=== PATIENT | female | born 1995 | race Caucasian/White ===

== ENCOUNTER 2018-07-26 17:06 | Emergency (ER) | payer OTHER ==
[~2018-07-26] VITALS: Ht 157.5 cm; Wt 90.7 kg
[2018-07-26 17:30] VITALS: BP 120/75
[2018-07-26] MEDS ORDERED: HYDR-3164 PO (18:07)
[2018-07-26] MEDS ORDERED: PENI500T PO (18:07)
--- NOTE | 2018-07-26 18:07 | PHYS DOC ---
Adult General Chief Complaint Chief Complaint: DENTAL PROBLEM HPI HPI Patient is a 23 year old female with a history of anxiety who presents today complaining of 8 out of 10 right lower gum dental pain that began yesterday. Patient states she has a wisdom tooth that needs to be removed. She states she has a dentist appointment on Friday. Patient states she feels very stressed out. She is anxious, denies any suicidal or homicidal ideations. She states she is to be an anxiety medications but has not taken them for a long time. Review of Systems Review of Systems Constitutional: Denies fever or chills [] Eyes: Denies change in visual acuity, redness, or eye pain [] HENT:Reports dental pain. Denies nasal congestion or sore throat [] Respiratory: Denies cough or shortness of breath [] Cardiovascular: No additional information not addressed in HPI [] GI: Denies abdominal pain, nausea, vomiting, bloody stools or diarrhea [] : Denies dysuria or hematuria [] Musculoskeletal: Denies back pain or joint pain [] Integument: Denies rash or skin lesions [] Neurologic: Denies headache, focal weakness or sensory changes [] Psych: Reports anxiety and stress. All other systems were reviewed and found to be within normal limits, except as documented in this note. Physical Exam Physical Exam Constitutional: Well developed, well nourished, no acute distress, non-toxic appearance. [] HENT: Normocephalic, atraumatic, bilateral external ears normal, oropharynx moist, no oral exudates, nose normal. [] Tooth #32 appears to be penetrating the gum no erythema no gum swelling. Eyes: PERRLA, EOMI, conjunctiva normal, no discharge. [] Neck: Normal range of motion, no tenderness, supple, no stridor. [] Cardiovascular:Heart rate regular rhythm, no murmur [] Lungs & Thorax: Bilateral breath sounds clear to auscultation [] Abdomen: Bowel sounds normal, soft, no tenderness, no masses, no pulsatile masses. [] Skin: Warm, dry, no erythema, no rash. [] Back: No tenderness, no CVA tenderness. [] Extremities: No tenderness, no cyanosis, no clubbing, ROM intact, no edema. [] Neurologic: Alert and oriented X 3, normal motor function, normal sensory function, no focal deficits noted. [] Psychologic: Patient appears depressed EKG EKG [] Radiology/Procedures Radiology/Procedures [] Course & Med Decision Making Course & Med Decision Making Pertinent Labs and Imaging studies reviewed. (See chart for details) This is a 23-year-old female patient presenting to the ED today with right wisdom tooth dental pain as well as anxiety and stress. Recommended she follows up with [facility] for anxiety and stress and her dentist on Friday for wisdom tooth removal. Discharged with [facility] and PAT. Amanda Disclaimer Dragdiane Disclaimer This electronic medical record was generated, in whole or in part, using a voice recognition dictation system. Departure Departure Impression: Primary Impression: Dentalgia Additional Impressions: Panic attack Stress Anxiety Disposition: HOME, SELF-CARE Condition: STABLE Referrals: NO PCP (PCP) follow up with your dentist and [facility] as soon as you can Patient Instructions: Anxiety and Panic Attacks, Dental Pain Additional Instructions: You were evaluated in the emergency room for dental pain and anxiety/stress. Follow-up with your dentist on Friday, consider following up with [facility] for anxiety and stress management. Consider establishing care with a primary care doctor from the list provided. 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
--- NOTE | 2018-07-27 06:40 | EKG ---
[facility] [address] [place] [address] Test Date: 2018-07-26 Test Time: 18:24:59 Pat Name: LUIS MIGUEL OLIVARES Department: Room: Gender: F Flow Trader: : 1995 Requested By: STAFF NON Order Number: [id number] Reading MD: Kobe Ni MD Measurements Intervals [place] Rate: 86 P: 48 LA: 154 QRS: 0 QRSD: 62 T: 13 QT: 344 QTc: 414 Interpretive Statements SINUS RHYTHM Electronically Signed On 07-28-2018 11:10:16 [employer] by Kobe Ni MD
== END 2018-07-26 18:37 | disposition home or self-care (01) ==
LOC: ER 17:25
DX: K08.89 Other specified disorders of teeth and supporting structures (principal); F41.0 Panic disorder [episodic paroxysmal anxiety]; F41.9 Anxiety disorder, unspecified; F43.9 Reaction to severe stress, unspecified
CPT/HCPCS: 93005; 99284